=== PATIENT | male | born 1970 | race Caucasian/White ===

== ENCOUNTER 2024-09-26 08:45 | Emergency (ER) | payer BC ==
--- OUTSIDE RECORDS SUMMARY | 2024-09-26 08:51 | XMS REPORT | Continuity of Care Document ---
Author Name Unknown Address [address] [facility] [address] [place] [address] Organization [facility] [place] Address [address] [facility] 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 Name Role Phone SHANICE DARLING Primary Care Physician Unavaila DERECK Mercer Attending Clinician Missy suarez Doctor Unassigned, [place] Attending Clinician U LUIS Gaitan Attending Clinician LUIS Montana Attending Clinician Luis Montana MD Attending Clinician [phone] [facility] Attending Clinician UnavailMARK Chaves Attending Clinician Unavailable 2, [facility] Attending Clinician Unavailable Mark Alonso MD Attending Clinician [phone] Lab, Ang - Db Attending Clinician Unavailable Radiology Attending Clinician Unavailable RADIOLOGY Attending Clinician Unavailable ANNABEL COULTER Admitting Clinician Unavailable Payers Payer Name Policy Type Policy Number Effective Date Expirati on Date Source [facility] [id number] 2017 00:00:00 Problems Condition Name Condition Details Condition Category Status Onset Date Resolution Date Last Treatment Date Treating Clinician Comments Source No known active problems No known active problems Disease [facility] Allergies, Adverse Reactions, Alerts Allergy Name Allergy Type Status Severity Reaction(s) Onset Date Inactive Date Treating Clinician Comments Source Hmg-Coa Reductas e Inhibito rs Propensi ty to adverse reaction to drug Active 310 00:00: 00 NO KNOWN ALLERGIE S Drug Class Active [facility] Social History Social Habit Start Date Stop Date Quantity Comments Source History of tobacco use Occasional tobacco smoker [facility] of Social function 2024-09-22 00:00:00 2024-09-22 00:00:00 [facility] Alcoholic beverage intake 2024-09-22 00:00:00 2024-09-22 00:00:00 Current drinker of alcohol (finding) [facility] Alcohol intake 2023-01-25 00:00:00 2023-01-25 00:00:00 Current drinker of alcohol (finding) [facility] Exposure to SARS-CoV-2 (event) 2022-06-24 00:00:00 2022-07-04 14:16:00 Not sure [facility] Tobacco use and exposure 2021-05-11 00:00:00 2021-05-11 00:00:00 Smokeless tobacco non-user [facility] Sex assigned at 1970 00:00:00 1970 00:00:00 [facility] Smoking Status Start Date Stop Date Source Occasional tobacco smoker 2021-05-11 00:00:00 [facility] Medications Ordered Medication Name Filled Medication Name Start Date Stop Date Current Medication? Ordering Clinician Indication Dosage Frequency Signature (SIG) Comments Components Source methocarbam oL 750 mg tablet 09-22 00:00: 00 Yes [id number] 750mg Take 1 tablet by mouth 4 times daily as needed for Pain (scale 4-6). [facility] triamcinolo ne acetonide (KENALOG) injection 40 mg 2022-02 2 17:00: 00 01-25 16:14 :00 No [id number] 4105 40mg [facility] Dose Unknown 3-10 00:00: 00 No Dose Unknown 3-10 00:00: 00 No Dose Unknown 3-10 00:00: 00 No Dose Unknown 3-10 00:00: 00 No Dose Unknown 3-10 00:00: 00 No Dose Unknown 3-10 00:00: 00 No Dose Unknown 3 00:00: 00 No Dose Unknown 0 3-10 00:00: 00 No Dose Unknown 0 3-10 00:00: 00 No prednisone 20 mg tablet 0 - 00:00: 00 No mg prednisone 20 mg tablet - 00:00: 00 No mg prednisone 20 mg tablet 1- 00:00: 00 No mg gabapentin 600 mg tablet 0 1- 00:00: 00 No 1mg prednisone 20 mg tablet - 00:00: 00 No mg gabapentin 600 mg tablet 1- 00:00: 00 No 1mg diclofenac sodium 75 mg tablet,madelyn yed release 1- 00:00: 00 No 1mg diclofenac sodium 75 mg tablet,madelyn yed release 1- 00:00: 00 No 1mg gabapentin 600 mg tablet 2020-02 2-16 00:00: 00 No 1mg gabapentin 600 mg tablet 2020-02 2- 00:00: 00 No 1mg enalapril maleate 20 mg tablet 2020-02 1- 00:00: 00 No 1mg enalapril maleate 20 mg tablet 2020-02 1- 00:00: 00 No 1mg gabapentin 600 mg tablet 2020-02 00:00: 00 No 1mg diclofenac sodium 75 mg tablet,madelyn yed release 2020-02 00:00: 00 No 1mg allopurinol 300 mg tablet 2020-02 00:00: 00 No 1mg tamsulosin 0.4 mg capsule 2020-02 00:00: 00 No 1mg gabapentin 600 mg tablet 2020-02 00:00: 00 No 1mg diclofenac sodium 75 mg tablet,madelyn yed release 2020-02 00:00: 00 No 1mg allopurinol 300 mg tablet 2020-02 00:00: 00 No 1mg tamsulosin 0.4 mg capsule 2020-02 00:00: 00 No 1mg gabapentin 600 mg tablet 07-31 00:00: 00 No 1mg gabapentin 600 mg tablet 07-31 00:00: 00 No 1mg diclofenac sodium 75 mg tablet,madelyn yed release 4- 00:00: 00 No 1mg diclofenac sodium 75 mg tablet,madelyn yed release 4-07 00:00: 00 No 1mg acetaminoph en 300 mg-codeine 30 mg tablet 3- 00:00: 00 No 1mg acetaminoph en 300 mg-codeine 30 mg tablet 3- 00:00: 00 No 1mg diclofenac sodium 75 mg tablet,madelyn yed release 2-25 00:00: 00 No 1mg acetaminoph en 300 mg-codeine 30 mg tablet 2-25 00:00: 00 No 1mg tizanidine 4 mg capsule 2-25 00:00: 00 No 1mg cholecalcif anastasiia (vitamin D3) 1,250 mcg (50,000 unit) capsule 2- 00:00: 00 No 1(50,00 0 unit) diclofenac sodium 75 mg tablet,madelyn yed release 2- 00:00: 00 No 1mg acetaminoph en 300 mg-codeine 30 mg tablet 2- 00:00: 00 No 1mg tizanidine 4 mg capsule 2-25 00:00: 00 No 1mg cholecalcif anastasiia (vitamin D3) 1,250 mcg (50,000 unit) capsule 2-25 00:00: 00 No 1(50,00 0 unit) carvedilol 12.5 mg tablet 2-24 00:00: 00 No 1mg gabapentin 600 mg tablet 2-24 00:00: 00 No 1mg enalapril maleate 20 mg tablet 2-24 00:00: 00 No 1mg Plavix 75 mg tablet 2-24 00:00: 00 No 1mg rosuvastati n 40 mg tablet 2-24 00:00: 00 No 1mg allopurinol 300 mg tablet 2-24 00:00: 00 No 1mg tamsulosin 0.4 mg capsule 0 2-24 00:00: 00 No 1mg carvedilol 12.5 mg tablet 2021-0 2-24 00:00: 00 No 1mg gabapentin 600 mg tablet 0 224 00:00: 00 No 1mg enalapril maleate 20 mg tablet 0 2-24 00:00: 00 No 1mg Plavix 75 mg tablet 224 00:00: 00 No 1mg rosuvastati n 40 mg tablet 0 2 00:00: 00 No 1mg allopurinol 300 mg tablet 2 00:00: 00 No 1mg tamsulosin 0.4 mg capsule 04-07 00:00: 00 No 1mg carvedilol 12.5 mg tablet 0 10-15 00:00: 00 No 1mg gabapentin 600 mg tablet 0 10-15 00:00: 00 No 1mg enalapril maleate 20 mg tablet 0 10-15 00:00: 00 No 1mg Plavix 75 mg tablet 0 - 00:00: 00 No 1mg rosuvastati n 40 mg tablet 0 10-15 00:00: 00 No 1mg allopurinol 300 mg tablet 0 10-15 00:00: 00 No 1mg tamsulosin 0.4 mg capsule 0 9- 00:00: 00 No 1mg carvedilol 12.5 mg tablet 0 10-15 00:00: 00 No 1mg gabapentin 600 mg tablet 0 10-15 00:00: 00 No 1mg enalapril maleate 20 mg tablet 0 10-15 00:00: 00 No 1mg Plavix 75 mg tablet 0 10-15 00:00: 00 No 1mg rosuvastati n 40 mg tablet 0 10-15 00:00: 00 No 1mg allopurinol 300 mg tablet 0 - 00:00: 00 No 1mg tamsulosin 0.4 mg capsule 0 10-15 00:00: 00 No 1mg meloxicam 15 mg tablet 0 07-15 00:00: 00 No 1mg enalapril maleate 20 mg tablet 0 6- 00:00: 00 No 1mg carvedilol 12.5 mg tablet 0 - 00:00: 00 No 1mg gabapentin 600 mg tablet 07-15 00:00: 00 No 1mg Plavix 75 mg tablet 07-15 00:00: 00 No 1mg rosuvastati n 40 mg tablet 07-15 00:00: 00 No 1mg allopurinol 300 mg tablet 07-15 00:00: 00 No 1mg tamsulosin 0.4 mg capsule 07-15 00:00: 00 No 1mg tizanidine 4 mg capsule 07-15 00:00: 00 No 1mg meloxicam 15 mg tablet 07-15 00:00: 00 No 1mg enalapril maleate 20 mg tablet 07-15 00:00: 00 No 1mg carvedilol 12.5 mg tablet 07-15 00:00: 00 No 1mg gabapentin 600 mg tablet 07-15 00:00: 00 No 1mg Plavix 75 mg tablet 07-15 00:00: 00 No 1mg rosuvastati n 40 mg tablet 07-15 00:00: 00 No 1mg allopurinol 300 mg tablet 07-15 00:00: 00 No 1mg tamsulosin 0.4 mg capsule 07-15 00:00: 00 No 1mg tizanidine 4 mg capsule 07-15 00:00: 00 No 1mg tamsulosin 0.4 mg capsule 04-16 00:00: 00 No 1mg Vascepa 1 gram capsule 3- 00:00: 00 No 1gram Vascepa 1 gram capsule 3- 00:00: 00 No 2gram carvedilol 12.5 mg tablet 3- 00:00: 00 No 1mg enalapril maleate 20 mg tablet 3- 00:00: 00 No 1mg gabapentin 600 mg tablet 3- 00:00: 00 No 1mg allopurinol 300 mg tablet 3 00:00: 00 No 1mg Plavix 75 mg tablet 3- 00:00: 00 No 1mg rosuvastati n 40 mg tablet 3- 00:00: 00 No 1mg carvedilol 12.5 mg tablet 04-16 00:00: 00 No 1mg enalapril maleate 20 mg tablet 04-16 00:00: 00 No 1mg gabapentin 600 mg tablet 04-16 00:00: 00 No 1mg allopurinol 300 mg tablet 04-16 00:00: 00 No 1mg Plavix 75 mg tablet 04-16 00:00: 00 No 1mg rosuvastati n 40 mg tablet 04-16 00:00: 00 No 1mg tamsulosin 0.4 mg capsule 04-16 00:00: 00 No 1mg Vascepa 1 gram capsule 04-16 00:00: 00 No 1gram Vascepa 1 gram capsule 04-16 00:00: 00 No 2gram nitroglycer in 0.3 mg sublingual tablet 09-11 16:04: [address] 0.3 mg under the tongue every 5 (five) minutes as needed for Chest pain. [facility] aspirin 81 mg EC tablet 09-11 15:59: 39 Yes 81mg Take 81 mg by mouth daily. [facility] enalapril 20 mg tablet 09-09 00:00: 00 Yes [facility] gabapentin 300 mg capsule 09-09 00:00: 00 Yes [facility] Fenofibrate 160 mg tablet 09-01 00:00: 00 Yes [facility] clopidogrel 75 mg tablet 09-01 00:00: 00 Yes [facility] tamsulosin 0.4 mg 24 hr capsule 09-01 00:00: 00 Yes [facility] carvedilol 25 mg tablet 08-14 00:00: 00 Yes [facility] pantoprazol e 40 mg EC tablet 08-12 00:00: 00 Yes [facility] allopurinol 300 mg tablet 08-12 00:00: 00 Yes [facility] pravastatin 40 mg tablet 08-12 00:00: 00 Yes [facility] Vital Signs Vital Name Observation Time Observation Value Comments S rebecca Systolic blood pressure 2024-09-22 20:50:00 128 mm[Hg] [facility] Diastolic blood pressure 2024-09-22 20:50:00 73 mm[Hg] [facility] Oxygen saturation in Arterial blood by Pulse oximetry 2024-09-22 20:45:00 98 /min [facility] Heart rate 2024-09-22 20:45:00 92 /min [facility] Body temperature 2024-09-22 20:45:00 36.67 Yesenia [facility] Respiratory rate 2024-09-22 20:45:00 19 /min [facility] Body height 2024-09-22 20:45:00 195.6 cm [facility] Body weight 2024-09-22 20:45:00 116.075 kg [facility] BMI 2024-09-22 20:45:00 30.35 kg/m2 [facility] Body height 2023-01-25 16:04:00 195.6 cm [facility] Body weight 2023-01-25 16:04:00 120.611 kg [facility] BMI 2023-01-25 16:04:00 31.53 kg/m2 [facility] Systolic blood pressure 2021-05-11 20:01:00 166 mm[Hg] [facility] Diastolic blood pressure 2021-05-11 20:01:00 103 mm[Hg] [facility] Heart rate 2021-05-11 20:01:00 89 /min [facility] Body height 2021-05-11 20:01:00 195.6 cm [facility] Body weight 2021-05-11 20:01:00 113.399 kg [facility] BMI 2021-05-11 20:01:00 29.65 kg/m2 [facility] BP Systolic 2021-09-26 09:30:00 145 mm[Hg] BP Diastolic 2021-09-26 09:30:00 87 mm[Hg] Weight Measured 2021-09-26 09:30:00 254.80 pounds Height Measured 2021-09-26 09:30:00 77.00 inches Body Temperature 2021-09-26 09:30:00 98.30 degrees Heart Rate 2021-09-26 09:30:00 67.00 /min Respiratory Rate 2021-09-26 09:30:00 18.00 /min BP Systolic 2021-08-29 18:24:00 BP Diastolic 2021-08-29 18:24:00 Weight Measured 2021-08-29 18:24:00 252.00 pounds Height Measured 2021-08-29 18:24:00 77.00 inches Body Temperature 2021-08-29 18:24:00 Heart Rate 2021-08-29 18:24:00 Respiratory Rate 2021-08-29 18:24:00 BP Systolic 2021-04-21 13:41:00 104 mm[Hg] BP Diastolic 2021-04-21 13:41:00 63 mm[Hg] Weight Measured 2021-04-21 13:41:00 252.40 pounds Height Measured 2021-04-21 13:41:00 77.00 inches Body Temperature 2021-04-21 13:41:00 97.80 degrees Heart Rate 2021-04-21 13:41:00 72.00 /min Respiratory Rate 2021-04-21 13:41:00 BP Systolic 2021-03-14 15:17:00 114 mm[Hg] BP Diastolic 2021-03-14 15:17:00 77 mm[Hg] Weight Measured 2021-03-14 15:17:00 260.00 pounds Height Measured 2021-03-14 15:17:00 77.00 inches Body Temperature 2021-03-14 15:17:00 98.60 degrees Heart Rate 2021-03-14 15:17:00 74.00 /min Respiratory Rate 2021-03-14 15:17:00 BP Systolic 2021-02-16 09:58:00 159 mm[Hg] BP Diastolic 2021-02-16 09:58:00 94 mm[Hg] Weight Measured 2021-02-16 09:58:00 256.00 pounds Height Measured 2021-02-16 09:58:00 77.00 inches Body Temperature 2021-02-16 09:58:00 98.60 degrees Heart Rate 2021-02-16 09:58:00 73.00 /min Respiratory Rate 2021-02-16 09:58:00 16.00 /min BP Systolic 2021-02-16 09:04:00 159 mm[Hg] BP Diastolic 2021-02-16 09:04:00 94 mm[Hg] Weight Measured 2021-02-16 09:04:00 256.00 pounds Height Measured 2021-02-16 09:04:00 77.00 inches Body Temperature 2021-02-16 09:04:00 98.60 degrees Heart Rate 2021-02-16 09:04:00 73.00 /min Respiratory Rate 2021-02-16 09:04:00 16.00 /min BP Systolic 2020-12-13 15:56:00 119 mm[Hg] BP Diastolic 2020-12-13 15:56:00 79 mm[Hg] Weight Measured 2020-12-13 15:56:00 254.20 pounds Height Measured 2020-12-13 15:56:00 77.00 inches Body Temperature 2020-12-13 15:56:00 97.70 degrees Heart Rate 2020-12-13 15:56:00 68.00 /min Respiratory Rate 2020-12-13 15:56:00 BP Systolic 2020-05-04 16:54:00 145 mm[Hg] BP Diastolic 2020-05-04 16:54:00 93 mm[Hg] Weight Measured 2020-05-04 16:54:00 252.20 pounds Height Measured 2020-05-04 16:54:00 77.00 inches Body Temperature 2020-05-04 16:54:00 98.00 degrees Heart Rate 2020-05-04 16:54:00 74.00 /min Respiratory Rate 2020-05-04 16:54:00 17.00 /min BP Systolic 2020-04-26 17:11:00 125 mm[Hg] BP Diastolic 2020-04-26 17:11:00 82 mm[Hg] Weight Measured 2020-04-26 17:11:00 252.60 pounds Height Measured 2020-04-26 17:11:00 77.00 inches Body Temperature 2020-04-26 17:11:00 97.80 degrees Heart Rate 2020-04-26 17:11:00 71.00 /min Respiratory Rate 2020-04-26 17:11:00 BP Systolic 2020-04-06 13:40:00 152 mm[Hg] BP Diastolic 2020-04-06 13:40:00 91 mm[Hg] Weight Measured 2020-04-06 13:40:00 257.20 pounds Height Measured 2020-04-06 13:40:00 77.00 inches Body Temperature 2020-04-06 13:40:00 97.40 degrees Heart Rate 2020-04-06 13:40:00 77.00 /min Respiratory Rate 2020-04-06 13:40:00 BP Systolic 2019-10-16 10:21:00 132 mm[Hg] BP Diastolic 2019-10-16 10:21:00 75 mm[Hg] Weight Measured 2019-10-16 10:21:00 262.80 pounds Height Measured 2019-10-16 10:21:00 77.00 inches Body Temperature 2019-10-16 10:21:00 97.90 degrees Heart Rate 2019-10-16 10:21:00 70.00 /min Respiratory Rate 2019-10-16 10:21:00 BP Systolic 2019-07-16 10:22:00 145 mm[Hg] BP Diastolic 2019-07-16 10:22:00 94 mm[Hg] Weight Measured 2019-07-16 10:22:00 265.00 pounds Height Measured 2019-07-16 10:22:00 77.00 inches Body Temperature 2019-07-16 10:22:00 97.50 degrees Heart Rate 2019-07-16 10:22:00 70.00 /min Respiratory Rate 2019-07-16 10:22:00 Procedures Procedure Date / Time Performed Performing Clinicia n Source EXTERNAL PROVIDER RECORDS 2023-02-15 06:01:00 Doctor Unassigned, [place] [facility] REFERRAL- REQUEST/RESPONSE 2023-01-02 06:01:00 Doctor Unassigned, [place] [facility] ASSIGNMENT OF BENEFITS 2022-07-04 19:18:44 Docto r Unassigned, [place] [facility] REFERRAL- REQUEST/RESPONSE 2022-03-21 06:01:00 Doctor Unassigned, [place] [facility] REFERRAL- REQUEST/RESPONSE 2022-01-18 06:01:00 Doctor Unassigned, [place] [facility] Plan of Care Planned Activity Planned Date Details Comments Source Goal Plan of Care Note [code = 06485-7] Goal Plan of Care Note [code = 58684-7] Goal Plan of Care Note [code = 83822-1] Goal Plan of Care Note [code = 09439-2] Goal Plan of Care Note [code = 05576-2] Goal Plan of Care Note [code = 13253-2] Goal Plan of Care Note [code = 14288-8] Goal Plan of Care Note [code = 49180-6] Goal Plan of Care Note [code = 27688-9] Goal Plan of Care Note [code = 20481-3] Goal Plan of Care Note [code = 59381-5] Goal Plan of Care Note [code = 43861-4] Goal Plan of Care Note [code = 50494-7] Goal Plan of Care Note [code = 27052-0] Goal Plan of Care Note [code = 37138-7] Goal Plan of Care Note [code = 58449-1] Goal Plan of Care Note [code = 56759-5] Goal Plan of Care Note [code = 67263-4] Goal Plan of Care Note [code = 30190-7] Goal Plan of Care Note [code = 21609-3] Goal Plan of Care Note [code = 95702-7] Goal Plan of Care Note [code = 49727-3] Goal Plan of Care Note [code = 11276-0] Goal Plan of Care Note [code = 08497-8] Goal Plan of Care Note [code = 71553-4] Goal Plan of Care Note [code = 15089-8] Goal Plan of Care Note [code = 19032-0] Goal Plan of Care Note [code = 54378-2] Goal Plan of Care Note [code = 12030-4] Goal Plan of Care Note [code = 91372-7] Goal Plan of Care Note [code = 31867-1] Goal Plan of Care Note [code = 61917-4] Goal Plan of Care Note [code = 34139-6] Goal Plan of Care Note [code = 35547-7] Goal Plan of Care Note [code = 02755-7] Goal Plan of Care Note [code = 56720-6] Goal Plan of Care Note [code = 67364-8] Goal Plan of Care Note [code = 16733-6] Goal Plan of Care Note [code = 58826-2] Goal Plan of Care Note [code = 83575-1] Goal Plan of Care Note [code = 88329-3] Goal Plan of Care Note [code = 63028-0] Goal Plan of Care Note [code = 48810-1] Goal Plan of Care Note [code = 22646-0] Goal Plan of Care Note [code = 40647-9] Goal Plan of Care Note [code = 44150-8] Goal Plan of Care Note [code = 83345-1] Goal Plan of Care Note [code = 37745-4] Goal Plan of Care Note [code = 74430-4] Goal Plan of Care Note [code = 19951-4] Goal Plan of Care Note [code = 27637-4] Goal Plan of Care Note [code = 26625-6] Goal Plan of Care Note [code = 78528-5] Goal Plan of Care Note [code = 47044-2] Goal Plan of Care Note [code = 13571-7] Goal Plan of Care Note [code = 51081-7] Goal Plan of Care Note [code = 22259-9] Goal Plan of Care Note [code = 76958-8] Goal Plan of Care Note [code = 07216-6] Goal Plan of Care Note [code = 89856-4] Goal Plan of Care Note [code = 34825-9] Goal Plan of Care Note [code = 80959-0] Goal Plan of Care Note [code = 59422-9] Goal Plan of Care Note [code = 26426-5] Goal Plan of Care Note [code = 39816-9] Goal Plan of Care Note [code = 21299-7] Goal Plan of Care Note [code = 83775-4] Goal Plan of Care Note [code = 15695-6] Goal Plan of Care Note [code = 41040-2] Encounters Start Date/Time End Date/Time Encounter Type Admission Type Attending [facility] Care Facility Care Department Encounter ID Source 2024-09-22 16:00:00 2024-09-22 16:08:54 Urgent Care R DERECK GORDILLO [facility] 1.84.114 350.1.13.10 4.2.7.2.686 [id number] [facility] 2023-02-15 00:00:00 2023-02-15 00:00:00 Orders Only Doctor Unassigned, [place] [facility] 1.840.114 350.1.13.10 4.2.7.2.686 [id number] [facility] 2023-01-25 09:45:00 2023-01-25 10:19:29 Outpatient R LUIS MELLO CRAIG [facility] [id number] [facility] 2023-01-25 09:45:00 2023-01-25 10:19:29 Office Visit Luis Mello [facility] 1.840.114 350.1.13.10 4.2.7.2.686 [id number] [facility] 2023-01-10 15:30:00 2023-01-10 15:30:00 [facility] [id number] 2023-01-08 09:15:00 2023-01-08 09:15:00 [facility] [id number] [facility] 2023-01-02 00:00:00 2023-01-02 00:00:00 Orders Only Doctor Unassigned, [place] [facility] 1.84.114 350.1.13.10 4.2.7.2.686 [id number] [facility] 2022-07-04 14:30:00 2022-07-04 15:26:32 Outpatient MARK PHAN [facility] [id number] [facility] 2022-07-04 00:00:00 2022-07-04 00:00:00 Orders Only Doctor Unassigned, [place] [facility] 1.2840.114 350.1.13.10 4.2.7.2.686 [id number] [facility] 2022-06-21 15:17:04 2022-06-21 15:17:04 Outpatient SFA [facility] [id number] Orion Jimenes 2022-06-21 10:00:00 2022-06-21 10:15:00 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 2, [facility] 1.2840.114 350.1.13.10 4.2.7.2.686 [id number] [facility] 2022-06-21 10:00:00 2022-06-21 10:00:00 [facility] [id number] [facility] 2022-03-22 13:45:00 2022-03-22 14:00:00 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 Lab, [facility] 1.2.840.114 350.1.13.10 4.2.7.2.686 [id number] [facility] 2022-03-22 13:45:00 2022-03-22 13:45:00 Outpatient R [facility] [id number] [facility] 2022-03-21 10:30:00 2022-03-21 11:17:55 [facility] [id number] [facility] 2022-03-21 00:00:00 2022-03-21 00:00:00 Orders Only Doctor Unassigned, [place] [facility] 1.2840.114 350.1.13.10 4.2.7.2.686 [id number] [facility] 2022-01-18 00:00:00 2022-01-18 00:00:00 Orders Only Doctor Unassigned, [place] [facility] 1..840.114 350.1.13.10 4.2.7.2.686 [id number] [facility] 2022-01-17 11:30:22 2022-01-17 11:30:22 Outpatient SFA [facility] [id number] Orion Jimenes 2021-09-26 00:00:00 2021-09-26 00:00:00 Outpatient Visit [id number] 2021-08-29 00:00:00 2021-08-29 00:00:00 Outpatient Visit [id number] 2021-08-22 00:00:00 2021-08-22 00:00:00 Outpatient Visit [id number] 2021-05-11 15:15:00 2021-05-11 15:15:00 Office Visit Luis Mello [facility] 1.2.840.114 350.1.13.10 4.2.7.2.686 [id number] [facility] 2021-05-11 15:15:00 2021-05-11 15:12:51 Outpatient R LUIS MELLO [facility] [id number] [facility] 2021-04-26 00:00:00 2021-04-26 00:00:00 Telephone Luis Mello [facility] 1.2.840.114 350.1.13.10 4.2.7.2.686 [id number] [facility] 2021-04-26 00:00:00 2021-04-26 00:00:00 Orders Only Doctor Unassigned, [place] [facility] 1.2.840.114 350.1.13.10 4.2.7.2.686 [id number] [facility] 2021-04-06 10:28:55 2021-04-06 23:59:00 Hospital Encounter Radiology [facility] 1.2.840.114 350.1.13.10 4.2.7.2.686 [id number] [facility] 2021-04-06 10:28:55 2021-04-06 23:59:00 Outpatient R RADIOLOGY [facility] [id number] [facility] 2021-04-06 00:00:00 2021-04-06 00:00:00 Orders Only Doctor Unassigned, [place] [facility] 1.2.840.114 350.1.13.10 4.2.7.2.686 [id number] [facility] Results Test Description Test Time Test Comments Results Result Co mments Source COMPREHENSIVE METABOLIC [id number] 00:00:00* Test Item Value Reference Range Interpretation Comme nts GLUCOSE (test code = 2217) 137 MG/DL BUN (test code = 2208) 13 MG/DL CREATININE (test code = 2214) 0.71 MG/DL eGFR (2020 CKD-EPI) (test code = 52862) 111 ML/MIN/1.73 CALC BUN/CREAT (test code = 2235) 18 RATIO SODIUM (test code = 2231) 136 MEQ/L POTASSIUM (test code = 2228) 4.9 MEQ/L CHLORIDE (test code = 2215) 99 MEQ/L CARBON DIOXIDE (test code = 2206) 24 MEQ/L CALCIUM (test code = 2209) 9.5 MG/DL PROTEIN, TOTAL (test code = 2229) 7.0 G/DL ALBUMIN (test code = 2201) 4.9 G/DL CALC GLOBULIN (test code = 2240) 2.1 G/DL CALC A/G RATIO (test code = 2234) 2.3 RATIO BILIRUBIN, TOTAL (test code = 2207) 0.4 MG/DL ALKALINE PHOSPHATASE (test code = 2204) 91 U/L AST (test code = 2218) 20 U/L ALT (test code = 2219) 22 U/L CBC W/AUTO [id number] 00:00:00* Test Item Value Reference Range Interpretation Comme nts WBC (test code = 1001) 5.8 K/UL RBC (test code = 1002) 4.73 M/UL HEMOGLOBIN (test code = 1003) 13.9 G/DL HEMATOCRIT (test code = 1004) 40.6 % MCV (test code = 1005) 85.8 fL MCH (test code = 1006) 29.4 PG MCHC (test code = 1007) 34.2 G/DL RDW (test code = 1038) 12.2 % NEUTROPHILS (test code = 1008) 68.3 % LYMPHOCYTES (test code = 1010) 23.0 % MONOCYTES (test code = 1011) 6.5 % EOSINOPHILS (test code = 1012) 1.4 % BASOPHILS (test code = 1013) 0.3 % NUCLEATED RBCS (test code = 1065) 0.0 /100WBC'S PLATELET COUNT (test code = 1015) 264 K/UL ABSOLUTE NEUTROPHILS (test c ode = 1066) 3.97 K/UL ABSOLUTE LYMPHOCYTES (test c ode = 1067) 1.34 K/UL ABSOLUTE MONOCYTES (test cod e = 1068) 0.38 K/UL ABSOLUTE EOSINOPHILS (test c ode = 1040) 0.08 K/UL ABSOLUTE BASOPHILS (test cod e = 1069) 0.02 K/UL ABS NUCLEATED RBCS (test cod e = 73881) 0.00 K/UL HEMOGLOBIN [id number] 00:00:00* Test Item Value Reference Range Interpretation Comme nts HEMOGLOBIN A1c (test code = 78270) 6.2 % URIC [id number] 00:00:00* Test Item Value Reference Range Interpretation Comme nts URIC ACID (test code = 2233) 7.5 MG/DL RHEUMATOID FACTOR, [id number] 00:00:00* Test Item Value Reference Range Interpretation Comme nts RHEUMATOID FACTOR, QUANT (te st code = 3502) 12 IU/ML SEDIMENTATION [id number] 00:00:00* Test Item Value Reference Range Interpretation Comme nts SEDIMENTATION RATE (test cod e = 1017) 7 MM/HOUR FABIO (ANTI-NUCLEAR AB) WITH REFLEX [id number] 00:00:00* Test Item Value Reference Range Interpretation Comme nts ANTI-NUCLEAR ANTIBODIES (isela t code = 3506) NEGATIVE LIPID [id number] 00:00:00* Test Item Value Reference Range Interpretation Comme nts CHOLESTEROL (test code = 2210) 108 MG/DL TRIGLYCERIDES (test code = 2232) 159 MG/DL HDL CHOLESTEROL (test code = 2220) 38 MG/DL CALC LDL CHOL (test code = 2237) 46 MG/DL RISK RATIO LDL/HDL (test cod e = 2238) 1.21 RATIO COMPREHENSIVE METABOLIC [id number] 00:00:00* Test Item Value Reference Range Interpretation Comme nts GLUCOSE (test code = 2217) 137 MG/DL BUN (test code = 2208) 13 MG/DL CREATININE (test code = 2214) 0.71 MG/DL eGFR (2020 CKD-EPI) (test code = 73891) 111 ML/MIN/1.73 CALC BUN/CREAT (test code = 2235) 18 RATIO SODIUM (test code = 2231) 136 MEQ/L POTASSIUM (test code = 2228) 4.9 MEQ/L CHLORIDE (test code = 2215) 99 MEQ/L CARBON DIOXIDE (test code = 2206) 24 MEQ/L CALCIUM (test code = 2209) 9.5 MG/DL PROTEIN, TOTAL (test code = 2229) 7.0 G/DL ALBUMIN (test code = 2201) 4.9 G/DL CALC GLOBULIN (test code = 2240) 2.1 G/DL CALC A/G RATIO (test code = 2234) 2.3 RATIO BILIRUBIN, TOTAL (test code = 2207) 0.4 MG/DL ALKALINE PHOSPHATASE (test code = 2204) 91 U/L AST (test code = 2218) 20 U/L ALT (test code = 2219) 22 U/L CBC W/AUTO [id number] 00:00:00* Test Item Value Reference Range Interpretation Comme nts WBC (test code = 1001) 5.8 K/UL RBC (test code = 1002) 4.73 M/UL HEMOGLOBIN (test code = 1003) 13.9 G/DL HEMATOCRIT (test code = 1004) 40.6 % MCV (test code = 1005) 85.8 fL MCH (test code = 1006) 29.4 PG MCHC (test code = 1007) 34.2 G/DL RDW (test code = 1038) 12.2 % NEUTROPHILS (test code = 1008) 68.3 % LYMPHOCYTES (test code = 1010) 23.0 % MONOCYTES (test code = 1011) 6.5 % EOSINOPHILS (test code = 1012) 1.4 % BASOPHILS (test code = 1013) 0.3 % NUCLEATED RBCS (test code = 1065) 0.0 /100WBC'S PLATELET COUNT (test code = 1015) 264 K/UL ABSOLUTE NEUTROPHILS (test c ode = 1066) 3.97 K/UL ABSOLUTE LYMPHOCYTES (test c ode = 1067) 1.34 K/UL ABSOLUTE MONOCYTES (test cod e = 1068) 0.38 K/UL ABSOLUTE EOSINOPHILS (test c ode = 1040) 0.08 K/UL ABSOLUTE BASOPHILS (test cod e = 1069) 0.02 K/UL ABS NUCLEATED RBCS (test cod e = 21351) 0.00 K/UL HEMOGLOBIN [id number] 00:00:00* Test Item Value Reference Range Interpretation Comme nts HEMOGLOBIN A1c (test code = 80574) 6.2 % URIC [id number] 00:00:00* Test Item Value Reference Range Interpretation Comme nts URIC ACID (test code = 2233) 7.5 MG/DL RHEUMATOID FACTOR, [id number] 00:00:00* Test Item Value Reference Range Interpretation Comme nts RHEUMATOID FACTOR, QUANT (te st code = 3502) 12 IU/ML SEDIMENTATION [id number] 00:00:00* Test Item Value Reference Range Interpretation Comme nts SEDIMENTATION RATE (test cod e = 1017) 7 MM/HOUR FABIO (ANTI-NUCLEAR AB) WITH REFLEX [id number] 00:00:00* Test Item Value Reference Range Interpretation Comme nts ANTI-NUCLEAR ANTIBODIES (isela t code = 3506) NEGATIVE LIPID [id number] 00:00:00* Test Item Value Reference Range Interpretation Comme nts CHOLESTEROL (test code = 2210) 108 MG/DL TRIGLYCERIDES (test code = 2232) 159 MG/DL HDL CHOLESTEROL (test code = 2220) 38 MG/DL CALC LDL CHOL (test code = 2237) 46 MG/DL RISK RATIO LDL/HDL (test cod e = 2238) 1.21 RATIO COMPREHENSIVE METABOLIC [id number] 00:00:00* Test Item Value Reference Range Interpretation Comme nts GLUCOSE (test code = 2217) 137 MG/DL BUN (test code = 2208) 13 MG/DL CREATININE (test code = 2214) 0.71 MG/DL eGFR (2020 CKD-EPI) (test code = 77175) 111 ML/MIN/1.73 CALC BUN/CREAT (test code = 2235) 18 RATIO SODIUM (test code = 2231) 136 MEQ/L POTASSIUM (test code = 2228) 4.9 MEQ/L CHLORIDE (test code = 2215) 99 MEQ/L CARBON DIOXIDE (test code = 2206) 24 MEQ/L CALCIUM (test code = 2209) 9.5 MG/DL PROTEIN, TOTAL (test code = 2229) 7.0 G/DL ALBUMIN (test code = 2201) 4.9 G/DL CALC GLOBULIN (test code = 2240) 2.1 G/DL CALC A/G RATIO (test code = 2234) 2.3 RATIO BILIRUBIN, TOTAL (test code = 2207) 0.4 MG/DL ALKALINE PHOSPHATASE (test code = 2204) 91 U/L AST (test code = 2218) 20 U/L ALT (test code = 2219) 22 U/L CBC W/AUTO [id number] 00:00:00* Test Item Value Reference Range Interpretation Comme nts WBC (test code = 1001) 5.8 K/UL RBC (test code = 1002) 4.73 M/UL HEMOGLOBIN (test code = 1003) 13.9 G/DL HEMATOCRIT (test code = 1004) 40.6 % MCV (test code = 1005) 85.8 fL MCH (test code = 1006) 29.4 PG MCHC (test code = 1007) 34.2 G/DL RDW (test code = 1038) 12.2 % NEUTROPHILS (test code = 1008) 68.3 % LYMPHOCYTES (test code = 1010) 23.0 % MONOCYTES (test code = 1011) 6.5 % EOSINOPHILS (test code = 1012) 1.4 % BASOPHILS (test code = 1013) 0.3 % NUCLEATED RBCS (test code = 1065) 0.0 /100WBC'S PLATELET COUNT (test code = 1015) 264 K/UL ABSOLUTE NEUTROPHILS (test c ode = 1066) 3.97 K/UL ABSOLUTE LYMPHOCYTES (test c ode = 1067) 1.34 K/UL ABSOLUTE MONOCYTES (test cod e = 1068) 0.38 K/UL ABSOLUTE EOSINOPHILS (test c ode = 1040) 0.08 K/UL ABSOLUTE BASOPHILS (test cod e = 1069) 0.02 K/UL ABS NUCLEATED RBCS (test cod e = 09509) 0.00 K/UL HEMOGLOBIN [id number] 00:00:00* Test Item Value Reference Range Interpretation Comme nts HEMOGLOBIN A1c (test code = 80575) 6.2 % URIC [id number] 00:00:00* Test Item Value Reference Range Interpretation Comme nts URIC ACID (test code = 2233) 7.5 MG/DL RHEUMATOID FACTOR, [id number] 00:00:00* Test Item Value Reference Range Interpretation Comme nts RHEUMATOID FACTOR, QUANT (te st code = 3502) 12 IU/ML SEDIMENTATION [id number] 00:00:00* Test Item Value Reference Range Interpretation Comme nts SEDIMENTATION RATE (test cod e = 1017) 7 MM/HOUR FABIO (ANTI-NUCLEAR AB) WITH REFLEX [id number] 00:00:00* Test Item Value Reference Range Interpretation Comme nts ANTI-NUCLEAR ANTIBODIES (isela t code = 3506) NEGATIVE LIPID [id number] 00:00:00* Test Item Value Reference Range Interpretation Comme nts CHOLESTEROL (test code = 2210) 101 MG/DL TRIGLYCERIDES (test code = 2232) 253 MG/DL HDL CHOLESTEROL (test code = 2220) 33 MG/DL CALC LDL CHOL (test code = 2237) 38 MG/DL RISK RATIO LDL/HDL (test cod e = 2238) 1.15 RATIO COMPREHENSIVE METABOLIC [id number] 00:00:00* Test Item Value Reference Range Interpretation Comme nts GLUCOSE (test code = 2217) 143 MG/DL BUN (test code = 2208) 11 MG/DL CREATININE (test code = 2214) 0.63 MG/DL eGFR AMER. (test cod e = 74330) 133 ML/MIN/1.73 eGFR NON- AMER. (test code = 38352) 115 ML/MIN/1.73 CALC BUN/CREAT (test code = 2235) 17 RATIO SODIUM (test code = 2231) 136 MEQ/L POTASSIUM (test code = 2228) 4.6 MEQ/L CHLORIDE (test code = 2215) 101 MEQ/L CARBON DIOXIDE (test code = 2206) 23 MEQ/L CALCIUM (test code = 2209) 10.0 MG/DL PROTEIN, TOTAL (test code = 222) 6.9 G/DL ALBUMIN (test code = 2201) 4.9 G/DL CALC GLOBULIN (test code = 2240) 2.0 G/DL CALC A/G RATIO (test code = 2234) 2.5 RATIO BILIRUBIN, TOTAL (test code = 2207) 0.4 MG/DL ALKALINE PHOSPHATASE (test code = 2204) 85 U/L AST (test code = 2218) 36 U/L ALT (test code = 2219) 47 U/L PSA, [id number] 00:00:00* Test Item Value Reference Range Interpretation Comme nts PSA, TOTAL (test code = 2606) 0.35 NG/ML LIPID [id number] 00:00:00* Test Item Value Reference Range Interpretation Comme nts CHOLESTEROL (test code = 2210) 101 MG/DL TRIGLYCERIDES (test code = 2232) 253 MG/DL HDL CHOLESTEROL (test code = 2220) 33 MG/DL CALC LDL CHOL (test code = 2237) 38 MG/DL RISK RATIO LDL/HDL (test cod e = 2238) 1.15 RATIO COMPREHENSIVE METABOLIC [id number] 00:00:00* Test Item Value Reference Range Interpretation Comme nts GLUCOSE (test code = 2217) 143 MG/DL BUN (test code = 2208) 11 MG/DL CREATININE (test code = 2214) 0.63 MG/DL eGFR AMER. (test cod e = 08883) 133 ML/MIN/1.73 eGFR NON- AMER. (test code = 97627) 115 ML/MIN/1.73 CALC BUN/CREAT (test code = 2235) 17 RATIO SODIUM (test code = 2231) 136 MEQ/L POTASSIUM (test code = 2228) 4.6 MEQ/L CHLORIDE (test code = 2215) 101 MEQ/L CARBON DIOXIDE (test code = 2206) 23 MEQ/L CALCIUM (test code = 2209) 10.0 MG/DL PROTEIN, TOTAL (test code = 2229) 6.9 G/DL ALBUMIN (test code = 2201) 4.9 G/DL CALC GLOBULIN (test code = 2240) 2.0 G/DL CALC A/G RATIO (test code = 2234) 2.5 RATIO BILIRUBIN, TOTAL (test code = 2207) 0.4 MG/DL ALKALINE PHOSPHATASE (test code = 2204) 85 U/L AST (test code = 221) 36 U/L ALT (test code = 2219) 47 U/L PSA, [id number] 00:00:00* Test Item Value Reference Range Interpretation Comme nts PSA, TOTAL (test code = 2606) 0.35 NG/ML LIPID [id number] 00:00:00* Test Item Value Reference Range Interpretation Comme nts CHOLESTEROL (test code = 2210) 101 MG/DL TRIGLYCERIDES (test code = 2232) 253 MG/DL HDL CHOLESTEROL (test code = 2220) 33 MG/DL CALC LDL CHOL (test code = 2237) 38 MG/DL RISK RATIO LDL/HDL (test cod e = 2238) 1.15 RATIO COMPREHENSIVE METABOLIC [id number] 00:00:00* Test Item Value Reference Range Interpretation Comme nts GLUCOSE (test code = 2217) 143 MG/DL BUN (test code = 2208) 11 MG/DL CREATININE (test code = 2214) 0.63 MG/DL eGFR AMER. (test cod e = 43963) 133 ML/MIN/1.73 eGFR NON- AMER. (test code = 61939) 115 ML/MIN/1.73 CALC BUN/CREAT (test code = 2235) 17 RATIO SODIUM (test code = 2231) 136 MEQ/L POTASSIUM (test code = 2228) 4.6 MEQ/L CHLORIDE (test code = 2215) 101 MEQ/L CARBON DIOXIDE (test code = 2206) 23 MEQ/L CALCIUM (test code = 2209) 10.0 MG/DL PROTEIN, TOTAL (test code = 2229) 6.9 G/DL ALBUMIN (test code = 2201) 4.9 G/DL CALC GLOBULIN (test code = 2240) 2.0 G/DL CALC A/G RATIO (test code = 2234) 2.5 RATIO BILIRUBIN, TOTAL (test code = 2207) 0.4 MG/DL ALKALINE PHOSPHATASE (test code = 2204) 85 U/L AST (test code = 2218) 36 U/L ALT (test code = 2219) 47 U/L PSA, [id number] 00:00:00* Test Item Value Reference Range Interpretation Comme nts PSA, TOTAL (test code = 2606) 0.35 NG/ML
[2024-09-26] MEDS ORDERED: MORPHINE 4 MG/ML SYR ONE (09:25)
[2024-09-26] MEDS ORDERED: CYCLOBENZAPRINE 10 MG TAB ONE (09:25)
[2024-09-26] MEDS ORDERED: TRAMADOL HCL 50 MG TAB ONE (09:25)
--- NOTE | 2024-09-26 11:01 | RAD REPORT ---
EXAM: Knee Right 3 View INDICATION: PAIN COMPARISON: 11/20/2022 FINDINGS: No acute fracture. Small knee effusion. Medial lateral compartment narrowing that is probably moderate. Patellofemoral compartment spurring. Other: N/A IMPRESSION: No acute osseous abnormality involving the imaged knee.
[2024-09-26] MEDS ORDERED: HYDROCODONE/APAP 5/325 MG TAB ONE (12:35)
[2024-09-26] MEDS ORDERED: KETOROLAC 30 MG/ML INJ ONE (12:36)
[2024-09-26] MEDS ORDERED: ONDANSETRON 4 MG/2 ML VIAL ONE (13:42)
[2024-09-26] MEDS ORDERED: HYDROMORPHONE HCL 1 MG/ML INJ ONE (13:53)
--- NOTE | 2024-09-26 15:06 | RAD REPORT ---
Exam:Knee Right W/Wo Cont CLINICAL HISTORY: Knee pain COMPARISON: None TECHNIQUE: Routine noncontrast multiplanar, multisequence MRI of the right knee was obtained. FINDINGS: Posterior horn medial meniscus small with increased signal. Area of low signal anterior to the trace clerk ior cruciate ligament. Most likely this represents a bucket-handle tear. Abnormal signal posterior horn lateral meniscus likely a tear. Complete tear ACL. No PCL tear. Visualized patellar and quadriceps tendons intact. Medial and lateral collateral ligaments normal Patellar retinaculum is intact. Patellar facet cartilage normal 15 mm lesion medial femoral condyle with surrounding edema. Moderate to large joint effusion. Small Hook's cyst IMPRESSION: Complete ACL tear Bucket handle tear medial meniscus suspected. Lateral meniscal tear Moderate to large joint effusion 15 mm lesion medial femoral condyle with surrounding edema could be chronic or an acute bony defect.
--- NOTE | 2024-09-26 15:20 | ER ---
Nurse's Notes [facility] Name: Jhoan Rocha Age: 54 yrs Sex: Male : 1970 Arrival Date: 09/26/2024 Time: 08:45 Bed 15 Private MD: Diagnosis: Sprain of anterior cruciate ligament of right knee, initial encounter;Complex tear of medial meniscus, current injury, right knee, initial encounter Presentation: 09/26 09:16 Coronavirus screen: Client denies travel out of the [place] in the last 14 days. At this ll1 time, the client does not indicate any symptoms associated with coronavirus-19. Ebola Screen: Patient denies travel to an Ebola-affected area in the 21 days before illness onset. Initial Sepsis Screen: Does the patient meet any 2 criteria? No. Patient's initial sepsis screen is negative. Does the patient have a suspected source of infection? No. Patient's initial sepsis screen is negative. Risk Assessment: Do you want to hurt yourself or someone else? Patient reports no desire to harm self or others. 09:16 Method Of Arrival: Ambulatory ll1 09:16 Acuity: LILI 4 ll1 09:17 Chief complaint: Patient states: last week stepped up onto dock felt a pop and ll1 fell. R knee pain and swelling since. Onset of symptoms was September 18, 2024. Triage Assessment: 09:18 General: Appears uncomfortable, Behavior is calm, cooperative, appropriate for age. ll1 Pain: Complains of pain in R knee Pain currently is 9 out of 10 on a pain scale. Quality of pain is described as aching. Musculoskeletal: Circulation, motion, and sensation intact. Capillary refill < 3 seconds, Reports pain in R knee. Historical: - Allergies: 09:15 No Known Allergies; ll1 - PMHx: 09:15 Hypertensive disorder; cholesterol; Coronary atherosclerosis; ll1 - PSHx: :15 Coronary artery bypass graft; heart stents; ll1 - Immunization history:: Adult Immunizations up to date. - Infectious Disease History:: Denies. - Social history:: Smoking status: Patient denies any tobacco usage or history of. Screenin:42 [facility] ED Fall Risk Assessment (Adult) History of falling in the last 3 months, kc6 including since admission Yes- single mechanical fall (1 pt) Confusion or Disorientation No (0 pts) Intoxicated or Sedated No (0 pts) Impaired Gait Yes (1 pt) Mobility Assist Device Used No (0 pt) Altered Elimination No (0 pt) Score/Fall Risk Level 0 - 2 = Low Risk Oriented to surroundings. Abuse screen: Denies threats or abuse. Denies injuries from another. Nutritional screening: No deficits noted. Tuberculosis screening: No symptoms or risk factors identified. Assessment: 08:50 General: Appears in no apparent distress. uncomfortable, well developed, Behavior is af3 calm, cooperative, appropriate for age. Pain: Complains of pain in right leg Pain does not radiate. Pain currently is 4 out of 10 on a pain scale. Quality of pain is described as aching, pressure, Pain began 1 week ago Is continuous, Alleviated by rest, Aggravated by increased activity, weight bearing, Also complains of no other associated symptoms. Neuro: Level of Consciousness is awake, alert, obeys commands, Oriented to person, place, time, situation, Appropriate for age. Cardiovascular: Capillary refill < 3 seconds. Respiratory: Airway is patent Respiratory effort is even, unlabored, Respiratory pattern is regular, symmetrical. GI: No signs and/or symptoms were reported involving the gastrointestinal system. : No signs and/or symptoms were reported regarding the genitourinary system. EENT: No signs and/or symptoms were reported regarding the EENT system. Derm: Skin is intact, is healthy with good turgor, Skin is normal. Musculoskeletal: Circulation, motion, and sensation intact. Swelling present in right knee, right morales and anterior aspect of right ankle. 09:50 Reassessment: Patient appears in no apparent distress at this time. No changes from af3 previously documented assessment. Patient and/or family updated on plan of care and expected duration. Pain level reassessed. Patient is alert, oriented x 3, equal unlabored respirations, skin warm/dry/pink. 10:50 Reassessment: Patient appears in no apparent distress at this time. No changes from af3 previously documented assessment. Patient and/or family updated on plan of care and expected duration. Pain level reassessed. Patient is alert, oriented x 3, equal unlabored respirations, skin warm/dry/pink. 11:52 Reassessment: Patient appears in no apparent distress at this time. Patient and/or af3 family updated on plan of care and expected duration. Pain level reassessed. Patient is alert, oriented x 3, equal unlabored respirations, skin warm/dry/pink. Patient denies pain at this time. Patient states feeling better. Patient states symptoms have improved. 12:43 Reassessment: Patient appears in no apparent distress at this time. No changes from af3 previously documented assessment. Patient and/or family updated on plan of care and expected duration. Pain level reassessed. Patient is alert, oriented x 3, equal unlabored respirations, skin warm/dry/pink. Patient states symptoms have not improved. 13:43 Reassessment: Patient appears in no apparent distress at this time. No changes from kc6 previously documented assessment. Patient and/or family updated on plan of care and expected duration. Pain level reassessed. Patient is alert, oriented x 3, equal unlabored respirations, skin warm/dry/pink. 14:00 Reassessment: this RN to MRI to start an IV and administer medications. per Valentin from [facility] MRI, patient reports continued pain and discomfort to the right knee and is unable to stay still for imaging. 14:43 Reassessment: Patient appears in no apparent distress at this time. No changes from kc6 previously documented assessment. Patient and/or family updated on plan of care and expected duration. Pain level reassessed. Patient is alert, oriented x 3, equal unlabored respirations, skin warm/dry/pink. 16:10 Reassessment: Patient denies pain at this time. Patient states feeling better. Patient kc6 states symptoms have improved. Vital Signs: 09:16 Weight 113.4 kg; Height 6 ft. 5 in. ; Pain 2/10; ll1 09:31 BP 117 / 101; Pulse 78; Resp 17; Pulse Ox 99% ; ll1 10:42 BP 143 / 88; Pulse 72; Resp 18 S; Pulse Ox 98% on R/A; kc6 11:54 BP 128 / 77; Pulse 71; Resp 18; Pulse Ox 95% on R/A; Pain 0/10; af3 12:43 BP 121 / 99; Pulse 74; Resp 18; Pulse Ox 99% on R/A; Pain 5/10; af3 16:11 BP 133 / 60; Pulse 62; Resp 16 S; Pulse Ox 97% on R/A; kc6 09:16 Body Mass Index 29.65 (113.40 kg, 195.58 cm) ll1 09:16 Pain Scale: Adult ll1 11:54 Pain Scale: Adult af3 12:43 Pain Scale: Adult af3 ED Course: 08:49 Patient arrived in ED. al6 08:51 [facility] Ga[facility]C [facility] 08:51 Morgan Saleem MD is Attending Physician. dr5 09:14 Arm band placed on. ll1 09:17 Triage completed. ll1 10:36 Knee Right 3 View XRAY In Process Unspecified. EDMS 10:36 Christy Mcintosh, ULISES is Primary Nurse. kc6 10:42 Patient has correct armband on for positive identification. Bed in low position. Call kc6 light in reach. Side rails up X 1. Adult w/ patient. Pulse ox on. NIBP on. Door closed. Noise minimized. Lights dimmed. Warm blanket given. Pillow given. Verbal reassurance given. 10:42 Patient maintains SpO2 saturation greater than 95% on room air. kc6 14:07 Inserted saline lock: 20 gauge in left antecubital area, using aseptic technique. kc6 Flushed with 10 mL NS. 14:53 Knee Right Wo Cont In Process Unspecified. EDMS 15:18 Mahesh Tyler MD is Referral Physician. dr5 15:18 Sigifredo Perdomo MD is Referral Physician. dr5 15:18 Calderon Soliman MD is Referral Physician. dr5 16:10 No provider procedures requiring assistance completed. IV discontinued, intact, kc6 bleeding controlled, No redness/swelling at site. Pressure dressing applied. Knee immobilizer applied on right knee. Administered Medications: 09:34 Drug: traMADol PO 50 mg PO once Route: PO; ll1 10:49 Follow up: Response: No adverse reaction; Pain is decreased; RASS: Alert and Calm (0) af3 09:34 Drug: Cyclobenzaprine PO 10 mg PO once Route: PO; ll1 10:49 Follow up: Response: No adverse reaction; Pain is decreased af3 09:34 Drug: morphine IM 4 mg IM once Route: IM; Site: right vastus lateralis; ll1 10:48 Follow up: Response: No adverse reaction; Pain is decreased; RASS: Alert and Calm (0) af3 12:42 Drug: Ketorolac IM 30 mg IM once Route: IM; Site: left deltoid; af3 14:06 Follow up: Response: No adverse reaction; Pain is unchanged, physician notified kc6 12:42 Drug: [place] PO 5 mg-325 mg 2 tabs PO once Route: PO; af3 14:07 Follow up: Response: No adverse reaction; Pain is unchanged, physician notified; RASS: kc6 Alert and Calm (0) 14:07 Drug: HYDROmorphone IVP 1 mg IVP once Route: IVP; Site: left antecubital; kc6 16:09 Follow up: Response: No adverse reaction; Pain is decreased; RASS: Alert and Calm (0) kc6 14:07 Drug: Ondansetron IVP 4 mg IVP once; over 2 minutes Route: IVP; Site: left antecubital; kc6 16:10 Follow up: Response: No adverse reaction kc6 Medication: 16:11 VIS not applicable for this client. kc6 Outcome: 15:19 Discharge ordered by MD. dr5 16:11 Discharged to home via wheelchair, with crutches, with family, with significant other, kc6 16:11 Condition: improved 16:11 Discharge instructions given to patient, Instructed on discharge instructions, follow up and referral plans. no drinking with medication, no driving heavy equipment, medication usage, crutch walking, Demonstrated understanding of instructions, follow-up care, medications, crutch walking, Prescriptions given X 1, 16:12 Patient left the ED. kc6 Signatures: Dispatcher [employer] EDMS Francisco Díaz RN RN ll1 Christy Mcintosh RN RN kc6 Vielka Bonner RN RN af3 Xavi Gaona, LEATHA-C BULK SEALER-5 Kassandra Abdi Corrections: (The following items were deleted from the chart) 09:16 09:15 PMHx: Congestive heart failure; ll1 ll1 10:54 08:50 General: Appears distressed, uncomfortable, well developed, Behavior is calm, af3 cooperative, appropriate for age, af3 10:54 08:50 Musculoskeletal: Swelling present in right leg af3 af3 12:43 12:42 Ketorolac IM 30 mg IM in right deltoid af3 af3
--- NOTE | 2024-09-26 15:20 | EDPHYS ---
Physician Documentation [facility] Name: Jhoan Rocha Age: 54 yrs Sex: Male : 1970 Arrival Date: 09/26/2024 Time: 08:45 Bed 15 Private MD: ED Physician Morgan Saleem HPI: 09/26 09:34 This 54 yrs old Male presents to ER via Ambulatory with complaints of Knee dr5 Pain. 09:34 Onset: The symptoms/episode began/occurred 8 day(s) ago. Patient is a 54-year-old male dr5 with history of hypertension, hyperlipidemia, and coronary arthrosclerosis coming in with right knee pain has been going on for 8 days. Patient reports that he was stepping up on a step and heard a pop on the right knee. Patient states that he continued walking on it with a knee brace and pain has getting worse each day. Patient comes in the ER with crutches, knee brace on in flexed position, and Sixto wrap on right lower leg.. Historical: - Allergies: 09:15 No Known Allergies; ll1 - PMHx: 09:15 Hypertensive disorder; cholesterol; Coronary atherosclerosis; ll1 - PSHx: 09:15 Coronary artery bypass graft; heart stents; ll1 - Immunization history:: Adult Immunizations up to date. - Infectious Disease History:: Denies. - Social history:: Smoking status: Patient denies any tobacco usage or history of. ROS: 09:34 Constitutional: as per hpi dr5 Exam: 09:34 Constitutional: This is a well developed, well nourished patient who is awake, alert, dr5 and in no acute distress. Head/Face: Normocephalic, atraumatic. Eyes: Pupils equal round and reactive to light, extra-ocular motions intact. Lids and lashes normal. Conjunctiva and sclera are non-icteric and not injected. Cornea within normal limits. Periorbital areas with no swelling, redness, or edema. Chest/axilla: Normal chest wall appearance and motion. Nontender with no deformity. No lesions are appreciated. Cardiovascular: Regular rate and rhythm with a normal S1 and S2. Normal PMI, no JVD. No pulse deficits. Respiratory: Lungs have equal breath sounds bilaterally, clear to auscultation. No rales, rhonchi or wheezes noted. No increased work of breathing, no retractions or nasal flaring. Back: No spinal tenderness. No costovertebral tenderness. Full range of motion. Skin: Warm, dry with normal turgor. Normal color with no rashes, no lesions, and no evidence of cellulitis. Neuro: Awake and alert, GCS 15, oriented to person, place, time, and situation. Cranial nerves II-XII grossly intact. Motor strength 5/5 in all extremities. Sensory grossly intact. Cerebellar exam normal. Normal gait. 09:34 Musculoskeletal/extremity: Extremities: grossly normal except: noted in the right knee: pain, swelling, tenderness, ROM: limited passive range of motion, in the right knee, Circulation is intact in all extremities. Sensation intact. Vital Signs: 09:16 Weight 113.4 kg; Height 6 ft. 5 in. ; Pain 2/10; ll1 09:31 BP 117 / 101; Pulse 78; Resp 17; Pulse Ox 99% ; ll1 10:42 BP 143 / 88; Pulse 72; Resp 18 S; Pulse Ox 98% on R/A; kc6 11:54 BP 128 / 77; Pulse 71; Resp 18; Pulse Ox 95% on R/A; Pain 0/10; af3 12:43 BP 121 / 99; Pulse 74; Resp 18; Pulse Ox 99% on R/A; Pain 5/10; af3 16:11 BP 133 / 60; Pulse 62; Resp 16 S; Pulse Ox 97% on R/A; kc6 09:16 Body Mass Index 29.65 (113.40 kg, 195.58 cm) ll1 09:16 Pain Scale: Adult ll1 11:54 Pain Scale: Adult af3 12:43 Pain Scale: Adult af3 Procedures: 16:48 Splinting: Splint applied to right knee using knee immobilizer, applied by nurse. dr5 Examined by me, post splint application: neurovascular intact, 2+ distal pulses palpable, brisk capillary refill noted, Patient tolerated well. Crutch training provided to patient and/or family. Return demonstration given. MDM: 08:51 Medical Screening Exam initiated dr5 09:34 Differential diagnosis: abrasion, closed head injury, contusion, sprain, strain, Tendon dr5 strain. Data reviewed: vital signs, nurses notes. 11:38 Awaiting: MRI results. dr5 13:50 ED course: Patient is a MRI and having severe pain. Will give Dilaudid and Zofran. dr5 16:48 Data reviewed: I have discussed the patient's presentation/case with the attending [email or web address] Emergency Department Physician;. Consideration of Admission/Observation Escalation of care including admission/observation considered. Escalation considered patient found to have open fracture. I considered the following discharge prescriptions or medication management in the emergency department I discussed and recommended Over The Counter medications, Medications were administered in the Emergency Department. See MAR. Historians other than the Patient: Spouse/Significant Other: . Care significantly affected by the following chronic conditions: Hypertension, Coronary arthrosclerosis, hypertension. Care significantly affected by the following Social Determinants of Health: Poor access to healthcare and/or lack of insurance, Poor access to transportation, Problems related to employment. Counseling: I had a detailed discussion with the patient and/or guardian regarding the historical points, exam findings, and any diagnostic results supporting the discharge/admit diagnosis, the presence of at least one elevated blood pressure reading (>120/80) during this emergency department visit, radiology results, the need for outpatient follow up, for definitive care, a orthopedic surgeon, to return to the emergency department if symptoms worsen or persist or if there are any questions or concerns that arise at home. Medication response: Morphine, Dilaudid, Zofran, tramadol, [place]. Response to treatment: the patient's symptoms have markedly improved after treatment. Special discussion: I have referred the patient to see his PCP for further evaluation of high blood pressure. I discussed with the patient/guardian in detail that at this point there is no indication for admission to the hospital. It is understood, however, that if the symptoms persist or worsen the patient needs to return immediately for re-evaluation. Based on the history and exam findings, there is no indication for further emergent testing or inpatient evaluation. I discussed with the patient/guardian the need to see the orthopedic surgeon for further evaluation of the symptoms. ED course: MRI and x-ray results were printed and given to patient. I made a CD for patient with MRI and x-ray results on it. Recommended patient follow-up with Dr. Tyler next week. Recommended patient be nonweightbearing and use crutches at home. All questions answered. Strict ER precautions given.. 09/26 09:21 Order name: Knee Right 3 View XRAY; Complete Time: 11:04 dr5 09/26 14:46 Order name: Knee Right Wo Cont; Complete Time: 15:08 EDMS 09/26 09:22 Order name: Knee Immobilizer; Complete Time: 14:51 dr5 Administered Medications: 09:34 Drug: traMADol PO 50 mg PO once Route: PO; ll1 10:49 Follow up: Response: No adverse reaction; Pain is decreased; RASS: Alert and Calm (0) af3 09:34 Drug: Cyclobenzaprine PO 10 mg PO once Route: PO; ll1 10:49 Follow up: Response: No adverse reaction; Pain is decreased af3 09:34 Drug: morphine IM 4 mg IM once Route: IM; Site: right vastus lateralis; ll1 10:48 Follow up: Response: No adverse reaction; Pain is decreased; RASS: Alert and Calm (0) af3 12:42 Drug: Ketorolac IM 30 mg IM once Route: IM; Site: left deltoid; af3 14:06 Follow up: Response: No adverse reaction; Pain is unchanged, physician notified kc6 12:42 Drug: [place] PO 5 mg-325 mg 2 tabs PO once Route: PO; af3 14:07 Follow up: Response: No adverse reaction; Pain is unchanged, physician notified; RASS: kc6 Alert and Calm (0) 14:07 Drug: HYDROmorphone IVP 1 mg IVP once Route: IVP; Site: left antecubital; kc6 16:09 Follow up: Response: No adverse reaction; Pain is decreased; RASS: Alert and Calm (0) kc6 14:07 Drug: Ondansetron IVP 4 mg IVP once; over 2 minutes Route: IVP; Site: left antecubital; kc6 16:10 Follow up: Response: No adverse reaction kc6 Disposition Summary: 09/26/24 15:19 Discharge Ordered Notes: Location: Home dr5 Condition: Stable dr5 Diagnosis - Sprain of anterior cruciate ligament of right knee, initial encounter dr5 - Complex tear of medial meniscus, current injury, right knee, initial encounter dr5 Followup: dr5 - With: Emergency Department - When: As needed - Reason: Worsening of condition Followup: dr5 - With: Mahesh Tyler MD - When: 1 - 2 days - Reason: Recheck today's complaints, Continuance of care, Re-evaluation by your physician Followup: dr5 - With: Sigifredo Perdomo MD - When: 1 - 2 days - Reason: Recheck today's complaints, Continuance of care, Re-evaluation by your physician Followup: dr5 - With: Calderon Soliman MD - When: 1 - 2 days - Reason: Recheck today's complaints, Continuance of care, Re-evaluation by your physician Discharge Instructions: - Discharge Summary Sheet dr5 - Crutch Use, Adult dr5 - How to Use a Knee Immobilizer, [id number] dr5 - Anterior Cruciate Ligament Tear dr5 Forms: - Medication Reconciliation Form dr5 - Prescription Opioid Use dr5 - Patient Portal Instructions dr5 - Leadership Thank You Letter dr5 Prescriptions: - Tramadol 50 mg Oral tablet - take 1 tablet ORAL route every 8 hours as needed; 20 tablet; Refills: 0, dr5 Product Selection Permitted Addendum: 09/30/2024 14:02 Co-signature as Attending Physician, Morgan Saleem MD I agree with the assessment and c almanza plan of care. Signatures: Dispatcher [employer] EDAL Morgan Saleem MD MD cha Lewis, Lynsay RN RN ll1 Christy Mcintosh RN RN kc6 Vielka Bonner RN RN af3 Xavi Gaona, AIR MOVING TECHNICIAN-C AIR MOVING TECHNICIAN-Cdr5 Corrections: (The following items were deleted from the chart) 09/26 09:16 09:15 PMHx: Congestive heart failure; ll1 ll1 14:46 09:34 Knee Right W/Wo Cont ordered. [facility] EDAL
[2024-09-26 18:12] VITALS: BP 133/60; O2SAT 97
== END 2024-09-26 16:12 | disposition home or self-care (01) ==
LOC: ER 08:45
DX: S83.511A Sprain of anterior cruciate ligament of right knee, initial encounter (principal); S83.231A Complex tear of medial meniscus, current injury, right knee, initial encounter
CPT/HCPCS: 73562; 73721; 96375; 96372; 96374; 99284; J1171; J2405